=== PATIENT | male | born 1975 | race Two or more races ===

== ENCOUNTER 2020-02-25 00:24 | Inpatient (IN) | payer MEDICAID, OTHER ==
[~2020-02-25] VITALS: Ht 175.3 cm; Wt 148.4 kg
--- NOTE | 2020-02-25 00:32 | NUR ---
FORKLIFT SUPERVISOR: EKG DONE IN TRIAGE
[2020-02-25] MEDS ORDERED: LORazepam 2 MG/ML, 1ML ONE ×3 (00:50→02:01)
[2020-02-25 00:57] LABS: BASOPHILS # (AUTO) 0.03 x10^3/uL (0-0.1); BASOPHILS % (AUTO) 0 % (0-1); EOSINOPHILS % (AUTO) 1 % (1-7); LYMPHOCYTES # (AUTO) 1.86 x10^3/uL (1-3.4); LYMPHOCYTES % (AUTO) 19 % (22-44); MD NO; MEAN CORPUSCULAR HEMOGLOBIN 29.2 pg (27.5-34.5); MEAN CORPUSCULAR HGB CONC 33.3 g/dL (33.2-36.2); MEAN PLATELET VOLUME 7.9 fL (7.4-10.4); MONOCYTES # (AUTO) 0.59 x10^3/uL (0.2-0.8); MONOCYTES % (AUTO) 6 % (2-9); NEUTROPHILS % (AUTO) 74 % (42-75); PLATELET COUNT 191 x10^3/uL (130-400); RED BLOOD COUNT 5.05 x10^6/uL (4.38-5.82)
[2020-02-25] MEDS ORDERED: SODIUM CHLORIDE 0.9% 1,000ML IVBOLUS ONE (01:00)
[2020-02-25 01:06] LABS: ALANINE AMINOTRANSFERASE 87 U/L (12-78); ALBUMIN 2.8 g/dL (3.4-5.0); ANION GAP 15 mmol/L (5-15); CALCIUM 6.5 mg/dL (8.5-10.1); CHLORIDE 97 mmol/L (98-107); CREATININE 1.02 mg/dL (0.7-1.3)
[2020-02-25] MEDS: LORazepam 2 MG/ML, 1ML IVPush PRN ×4 (01:06→02:16)
[2020-02-25 01:08] LABS: ALKALINE PHOSPHATASE 232 U/L (45-117); BILIRUBIN,TOTAL 1.9 mg/dL (0.2-1.0); TOTAL PROTEIN 8.4 g/dL (6.4-8.2)
--- NOTE | 2020-02-25 01:26 | NUR ---
Break RN: Patient medicated per mar for CIWA protocol.
[2020-02-25] MEDS ORDERED: MAGNESIUM SULFATE 1 GM, THIAMINE 100 MG, FOLIC ACID 1 MG, MVI ADULT 10 ML in SODIUM CHL... IV ONE (02:00)
[2020-02-25] MEDS ORDERED: POTASSIUM CHLORIDE 20 MEQ TAB.ER.PRT PO ONE (02:00)
[2020-02-25] MEDS ORDERED: THIAMINE 100MG TABLET PO ONE (02:00)
[2020-02-25] MEDS ORDERED: POTASSIUM CHLORIDE 20 MEQ TAB.ER.PRT ONE (02:01)
[2020-02-25] MEDS ORDERED: ONDANSETRON 2MG/ML, 2ML ONE (02:03)
[2020-02-25] MEDS ORDERED: MAALOX/HYOSCYAMINE/LIDOCAINE 45 ML BTL ONE (02:03)
[2020-02-25] MEDS ORDERED: NS + 20MEQ KCL 1,000 ML IV SCH (02:16)
--- NOTE | 2020-02-25 02:26 | NUR ---
Break RN: Patient states he was seen here earlier today for the same but AMA'd. He went home and ate and attempted to drink gatorade but progressively felt worse. Patient returned and was tremulous, nauseous, and had epigastric discomfort.
[2020-02-25] MEDS ORDERED: MAALOX/HYOSCYAMINE/LIDOCAINE 45 ML BTL PO ONE (02:30)
[2020-02-25] MEDS ORDERED: DOCUSATE 100 MG CAPSULE PO PRN (02:30)
[2020-02-25] MEDS ORDERED: LORazepam 2 MG/ML, 1ML IV PRN ×4 (02:30)
[2020-02-25] MEDS ORDERED: LABETALOL 5MG/ML, 20ML IVPush PRN (02:30)
[2020-02-25] MEDS ORDERED: ONDANSETRON 2MG/ML, 2ML IVPush ONE (02:30)
--- NOTE | 2020-02-25 02:32 | NUR ---
Report given to JOSHUA Go. Patient to be transferred to room 419.
[2020-02-25 03:09] VITALS: BP 110/75
[2020-02-25 04:34] VITALS: BP 115/70
[2020-02-25 06:26] VITALS: BP 119/66
[2020-02-25] MEDS ORDERED: DIAZEPAM 10 MG TABLET PO SCH (06:30)
[2020-02-25] MEDS: LORazepam 2 MG/ML, 1ML IV PRN ×4 (07:30→14:23)
[2020-02-25] MEDS: MULTIVITAMINS/MINERALS TABLET PO SCH (07:32)
[2020-02-25] MEDS ORDERED: LOSARTAN 50MG TABLET PO SCH (09:00)
[2020-02-25] MEDS ORDERED: DIAZEPAM 10 MG TABLET PO ONE (09:00)
[2020-02-25] MEDS: DIAZEPAM 10 MG TABLET PO SCH ×3 (11:15→21:47)
[2020-02-25] MEDS ORDERED: MAGNESIUM SULFATE PMX 4GM/100M 100 ML IV ONE (12:30)
[2020-02-25 12:41] VITALS: BP 131/81
[2020-02-25] MEDS ORDERED: METOPROLOL 1 MG/ML, 5ML IVPush STA (12:42)
[2020-02-25] MEDS ORDERED: METOPROLOL 1 MG/ML, 5ML ONE (12:45)
[2020-02-25] MEDS: METOPROLOL TARTRATE 25 MG TAB PO SCH ×2 (13:44→21:47)
[2020-02-25 18:37] VITALS: BP 100/60
[2020-02-25] MEDS ORDERED: PRAVASTATIN 20 MG TABLET PO SCH (21:00)
[2020-02-25 21:40] VITALS: BP 105/73
[2020-02-25] MEDS: ONDANSETRON 2MG/ML, 2ML IVPush PRN (21:52)
[2020-02-26 01:45] VITALS: BP 121/85
[2020-02-26 04:32] LABS: BASOPHILS # (AUTO) 0.05 x10^3/uL (0-0.1); BASOPHILS % (AUTO) 1 % (0-1); EOSINOPHILS # (AUTO) 0.32 x10^3/uL (0-0.4); EOSINOPHILS % (AUTO) 4 % (1-7); LYMPHOCYTES # (AUTO) 1.03 x10^3/uL (1-3.4); LYMPHOCYTES % (AUTO) 13 % (22-44); MD NO; MEAN CORPUSCULAR HEMOGLOBIN 29.1 pg (27.5-34.5); MEAN CORPUSCULAR HGB CONC 32.7 g/dL (33.2-36.2); MEAN PLATELET VOLUME 7.7 fL (7.4-10.4); MONOCYTES # (AUTO) 0.44 x10^3/uL (0.2-0.8); MONOCYTES % (AUTO) 6 % (2-9); NEUTROPHILS # (AUTO) 5.96 x10^3/uL (1.8-6.8); NEUTROPHILS % (AUTO) 76 % (42-75); PLATELET COUNT 107 x10^3/uL (130-400); RED BLOOD COUNT 4.43 x10^6/uL (4.38-5.82); RED CELL DISTRIBUTION WIDTH 20.1 % (9.4-14.8)
[2020-02-26 04:35] LABS: ALBUMIN 2.3 g/dL (3.4-5.0); ANION GAP 10 mmol/L (5-15); CALCIUM 6.5 mg/dL (8.5-10.1); CHLORIDE 103 mmol/L (98-107)
[2020-02-26 04:41] VITALS: BP 126/85
[2020-02-26 04:41] LABS: ALANINE AMINOTRANSFERASE 65 U/L (12-78); ALKALINE PHOSPHATASE 183 U/L (45-117); BILIRUBIN,TOTAL 2.1 mg/dL (0.2-1.0); TOTAL PROTEIN 6.9 g/dL (6.4-8.2)
[2020-02-26] MEDS: ONDANSETRON 2MG/ML, 2ML IVPush PRN ×2 (04:42→20:29)
[2020-02-26] MEDS: DIAZEPAM 10 MG TABLET PO SCH ×2 (04:43→11:55)
[2020-02-26] MEDS: METOPROLOL TARTRATE 25 MG TAB PO SCH ×3 (04:43→20:28)
[2020-02-26 07:41] VITALS: BP 118/83
[2020-02-26] MEDS ORDERED: POTASSIUM CHLORIDE 10 MEQ TABLET.ER PO ONE (08:00)
[2020-02-26] MEDS ORDERED: LACTATED RINGERS 1,000 ML IVBOLUS ONE (08:00)
[2020-02-26] MEDS: MULTIVITAMINS/MINERALS TABLET PO SCH (08:24)
[2020-02-26] MEDS: THIAMINE 100 MG in DEXTROSE 5% 50 ML IVPB SCH (10:44)
[2020-02-26 13:25] VITALS: BP 121/80
[2020-02-26 14:25] LABS: ANION GAP 9 mmol/L (5-15); CALCIUM 7.2 mg/dL (8.5-10.1); CHLORIDE 100 mmol/L (98-107); CREATININE 3.41 mg/dL (0.7-1.3)
[2020-02-26 14:47] LABS: INTERNATIONAL NORMALIZED RATIO 1.21 (0.93-1.1); PROTHROMBIN TIME 12.5 Seconds (9.6-11.5)
[2020-02-26 16:03] LABS: MICROSCOPIC NOT IND
[2020-02-26] MEDS: DIAZEPAM 5 MG TABLET PO SCH ×2 (16:11→20:27)
[2020-02-26 16:12] LABS: CREATININE,URINE RANDOM 61.9 mg/dL
[2020-02-26 17:30] LABS: CREATINE KINASE, TOTAL 360 U/L (39-308)
[2020-02-26] MEDS: LACTATED RINGERS 1,000 ML IV SCH (19:07)
[2020-02-26 20:17] VITALS: BP 128/85
[2020-02-27 02:15] VITALS: BP 128/88
[2020-02-27 04:49] LABS: ALBUMIN 2.1 g/dL (3.4-5.0); ANION GAP 11 mmol/L (5-15); CALCIUM 7.1 mg/dL (8.5-10.1); CHLORIDE 102 mmol/L (98-107)
[2020-02-27 04:52] LABS: ALANINE AMINOTRANSFERASE 57 U/L (12-78); ALKALINE PHOSPHATASE 180 U/L (45-117); BILIRUBIN,TOTAL 2.3 mg/dL (0.2-1.0); CREATININE 3.71 mg/dL (0.7-1.3); TOTAL PROTEIN 6.6 g/dL (6.4-8.2)
[2020-02-27 05:43] VITALS: BP 136/91
[2020-02-27] MEDS: LACTATED RINGERS 1,000 ML IV SCH (05:47)
[2020-02-27] MEDS: METOPROLOL TARTRATE 25 MG TAB PO SCH ×3 (05:48→20:05)
[2020-02-27] MEDS: DIAZEPAM 5 MG TABLET PO SCH (05:48)
[2020-02-27 06:10] VITALS: BP 98/66
[2020-02-27] MEDS: MULTIVITAMINS/MINERALS TABLET PO SCH (09:05)
[2020-02-27] MEDS: THIAMINE 100 MG in DEXTROSE 5% 50 ML IVPB SCH (09:05)
[2020-02-27] MEDS: DIAZEPAM 10 MG TABLET PO SCH ×3 (12:01→20:05)
[2020-02-27 12:10] VITALS: BP 142/99
[2020-02-27 19:07] VITALS: BP 126/92
[2020-02-27] MEDS: THIAMINE 100MG TABLET PO SCH (20:05)
[2020-02-28 02:00] VITALS: BP 129/87
[2020-02-28] MEDS: METOPROLOL TARTRATE 25 MG TAB PO SCH ×3 (05:20→20:00)
[2020-02-28] MEDS: DIAZEPAM 10 MG TABLET PO SCH (05:20)
[2020-02-28 06:22] VITALS: BP 137/93
[2020-02-28 06:32] LABS: BASOPHILS % (AUTO) 1 % (0-1); EOSINOPHILS % (AUTO) 4 % (1-7); LYMPHOCYTES % (AUTO) 18 % (22-44); MEAN CORPUSCULAR HEMOGLOBIN 29.3 pg (27.5-34.5); MEAN CORPUSCULAR HGB CONC 33.2 g/dL (33.2-36.2); MEAN PLATELET VOLUME 8.4 fL (7.4-10.4); MONOCYTES % (AUTO) 11 % (2-9); NEUTROPHILS % (AUTO) 67 % (42-75); PLATELET COUNT 96 x10^3/uL (130-400); RED BLOOD COUNT 4.32 x10^6/uL (4.38-5.82); RED CELL DISTRIBUTION WIDTH 20.2 % (9.4-14.8)
[2020-02-28 06:36] LABS: ANION GAP 9 mmol/L (5-15); CALCIUM 7.4 mg/dL (8.5-10.1); CHLORIDE 101 mmol/L (98-107)
[2020-02-28 06:37] LABS: CREATININE 3.52 mg/dL (0.7-1.3)
[2020-02-28] MEDS ORDERED: POTASSIUM CHLORIDE 20 MEQ TAB.ER.PRT PO ONE (07:00)
[2020-02-28 07:02] LABS: MD NO
[2020-02-28] MEDS: THIAMINE 100MG TABLET PO SCH ×2 (07:52→20:00)
[2020-02-28] MEDS: MULTIVITAMINS/MINERALS TABLET PO SCH (07:52)
[2020-02-28] MEDS: DIAZEPAM 5 MG TABLET PO SCH ×3 (11:07→20:00)
[2020-02-28 12:20] VITALS: BP 128/86
[2020-02-28 19:47] VITALS: BP 124/82
[2020-02-29 02:00] VITALS: BP 118/76
[2020-02-29] MEDS: DIAZEPAM 5 MG TABLET PO SCH (05:10)
[2020-02-29] MEDS: METOPROLOL TARTRATE 25 MG TAB PO SCH (05:10)
[2020-02-29 06:47] VITALS: BP 133/87
[2020-02-29] MEDS: THIAMINE 100MG TABLET PO SCH (07:41)
[2020-02-29 08:03] LABS: ANION GAP 6 mmol/L (5-15); CALCIUM 7.9 mg/dL (8.5-10.1); CHLORIDE 108 mmol/L (98-107); CREATININE 2.46 mg/dL (0.7-1.3)
[2020-02-29] MEDS ORDERED: METO25TA35 PO (08:21)
== END 2020-02-29 09:55 | disposition home or self-care (01) | DRG 432 ==
LOC: ED 01:17 → EDIP 01:54 → 4WST 02:48 → DCLOUNGE 02-29 09:50
PROVIDERS: ADMIT Family Medicine; ATTEND Hospitalist
DX: K70.9 Alcoholic liver disease, unspecified (principal); N17.0 Acute kidney failure with tubular necrosis; I47.1 Supraventricular tachycardia; F10.20 Alcohol dependence, uncomplicated; Y90.9 Presence of alcohol in blood, level not specified; I10 Essential (primary) hypertension; D69.6 Thrombocytopenia, unspecified; E83.51 Hypocalcemia; E87.6 Hypokalemia; E83.42 Hypomagnesemia
CPT/HCPCS: 36415; 76700; 80048; 80053; 80307; 81003; 82550; 82570; 83690; 83735; 83880; 84100; 84300; 85025; 85610; 93005; 96374; 96375; G0378; J2405; J3411; J3475; J3480; J2060; J7030; J7120

== ENCOUNTER 2020-07-01 12:02 | Emergency (ER) | payer MEDICAID ==
[~2020-07-01] VITALS: Ht 175.3 cm; Wt 133.0 kg
[~2020-07-01 12:02] MED LIST: METO25TA35 PO
--- NOTE | 2020-07-01 13:22 | NUR ---
AUTOMATIC LATHE OPERATOR: PT TO ROOM FROM LOBBY
[2020-07-01] MEDS ORDERED: HYDROcodone/APAP 5/325 TABLET PO PRN (13:30)
[2020-07-01] MEDS ORDERED: HYDROcodone/APAP 5/325 TABLET ONE (13:36)
[2020-07-01 15:42] VITALS: BP 139/79
--- NOTE | 2020-07-01 16:02 | NUR ---
PT REC'VD DISCHARGE INSTRUCTIONS AND EDUCATION. PT RC'VD CRUTCH AND INSTRUCTIONS FROM EDITOR NEWSPAPER. PT HAD NO FURTHER QUESTIONS. PT IN WHEELCHAIR TO DC DESK.
== END 2020-07-01 16:06 | disposition home or self-care (01) ==
LOC: ED 14:11
DX: S82.435A Nondisplaced oblique fracture of shaft of left fibula, initial encounter for closed fracture (principal); S93.492A Sprain of other ligament of left ankle, initial encounter; W01.0XXA Fall on same level from slipping, tripping and stumbling without subsequent striking against object, initial encounter; Y93.01 Activity, walking, marching and hiking; Y92.098 Other place in other non-institutional residence as the place of occurrence of the external cause; Y99.8 Other external cause status
CPT/HCPCS: 29505; 99284